=== PATIENT | female | born 1975 | race Caucasian/White ===

== ENCOUNTER → 2021-04-25 | Outpatient (CLI) | payer BC, SELFPAY | END | disposition home or self-care (01) | LOC: LABSPEC 04-26 09:38 | PROVIDERS: PCP Internal Medicine; Visit Provider Physician Assistant | DX: U07.1 COVID-19 (principal) | CPT/HCPCS: 87635; U0005; U0003 ==

== ENCOUNTER 2021-04-30 14:19 | Outpatient (CLI) | payer BC, SELFPAY ==
[2021-04-30] MEDS: 0.9% Saline Lock 10 ML Syringe IV (15:17)
[2021-04-30 15:19] VITALS: BP 109/82; PULSE 95; RESP 16; TEMP 36.9; O2SAT 98; BMI 35.9
[2021-04-30 15:50] VITALS: BP 123/86; PULSE 79; RESP 16; TEMP 36.7; O2SAT 98
[2021-04-30 16:49] VITALS: BP 125/79; PULSE 79; RESP 16; TEMP 36.7; O2SAT 98
== END 2021-04-30 16:50 | disposition home or self-care (01) ==
LOC: MS3OUT 14:20 → MS3 14:20
PROVIDERS: PCP Internal Medicine; Referring Provider Nurse Practitioner Acute Care; Visit Provider Nurse Practitioner Acute Care
DX: Z23 Encounter for immunization (principal); U07.1 COVID-19
CPT/HCPCS: J7050; M0245; Q0245; A4216

== ENCOUNTER 2023-11-29 19:11 | Emergency (ER) | payer BC, SELFPAY ==
[2023-11-29 19:11] VITALS: BP 123/92; PULSE 89; RESP 16; TEMP 36.6; O2SAT 95; BMI 36.4
--- NOTE | 2023-11-29 19:23 | ED.VIS.LOWEX ---
HPI History of Present Illness HPI Narrative: Patient presents with right knee injury that occurred today. Patient states she slipped on a wet floor and twisted her right knee. Patient states she landed on the anterior and lateral aspect of her right knee. Patient describes her pain as dull and aching but sharp at times. Patient states it is worse with full flexion of her knee. Patient states ice has been helping with that. Patient admits to some tingling over the anterior aspect of the knee. Patient denies any weakness. Patient denies any head injury or loss of consciousness. Patient denies any other injuries. Chief Complaint: Lower Extremity Injury Informant: patient Occured/Mechanism Mechanism/Context: Yes fall Onset/Context/Timing Onset: Today Context: Sudden Onset Timing: Continuous Quality of Pain: Sharp (At times), Dull and Aching Location: Right knee Worsened by: Complete flexion Relieved by: Ice Associated Symptoms Associated Symptoms: Positive for Parasthesia; Negative for Weakness or Loss of Funtion [facility] Medical History Encounter for screening for COVID-19 Hypertension Home Medications ibuprofen 600 mg tablet 600 mg PO Q8H PRN PRN Pain #14 TABLETS 12/21/15 [Rx Last Taken Unknown] lisinopril 20 mg tablet 10 mg PO QHS 12/21/15 [History Last Taken 04/30/21] simvastatin 10 mg tablet 10 mg PO QHS 12/21/15 [History Last Taken 04/29/21] buspirone 5 mg tablet 5 mg PO QHS Anxiety 06/15/16 [History Last Taken Unknown] Allergy/AdvReac Type Severity Reaction Status Date / Time No Known Allergies Allergy Verified 11/29/23 19:12 Surgical History History of Social History Smoking Status: Never smoker ROS ROS ED Constitutional Constitutional ED: Denies chills or fever(s) Eyes Eyes: Denies blurry vision or change in vision ENT ENT ED: Denies rhinorrhea or sore throat Cardiovascular Cardiovascular: Denies chest pain or palpitations Respiratory/Chest Respiratory/Chest: Denies cough or dyspnea Gastrointestinal Gastrointestinal: Denies nausea or vomiting Genitourinary Genitourinary ED: Denies dysuria or hematuria Musculoskeletal Musculoskeletal: Denies back pain or neck pain Integumentary Denies abscess or rash Neurologic Neurologic: Denies headache(s) or weakness Allergic/Immunologic Allergic/Immunologic ED: Denies mouth swelling or urticaria EXAM Physical Exam Const Vital Signs: 11/29/23 19:11 Temperature 98 F Temperature Source Temporal Pulse Rate 89 Respiratory Rate 16 Blood Pressure 123/92 H Blood Pressure Mean 102 Pulse Ox 95 Oxygen Delivery Method Room Air Positive well nourished and well developed General Appearance ED: well developed HEENT Reports moist mucous membranes Neck full ROM and supple Extremity Extremity Narrative: There is tenderness over the anterior and lateral aspects of the right knee. There is no effusion noted. There is no deformity noted. Range of motion was slightly limited in flexion of the right knee secondary to pain. Extensor mechanism is intact. Varus and valgus stress test were negative. There is tenderness along the joint line. There is guarding with Jacqueline's testing. There is tenderness with Maged testing. Strength is 5/5 bilaterally in the lower extremities. There are no sensory deficits noted. Neuro oriented x3, CN's II-XII intact bilaterally, moves all extremities and no sensory deficits noted Sensorium / Orientation: alert Motor Exam: strength 5/5 throughout Psych mental status grossly normal MDM MDM MDM Narrative Medical decision making narrative: Differential diagnosis includes sprain, contusion, and occult fracture. X-rays of the right knee will be obtained to assess for fracture. Radiography Diagnostic Testing: Clinical Impression(s) from Imaging Studies Knee X-Ray 11/29/23 19:53 IMPRESSION: Normal x-ray examination of the knee. Electronically Signed: Duong Albarran MD at 20:08 EDT , X-rays of the right knee were obtained. There are 4 views. On my independent interpretation, there is no acute fracture or dislocation noted. There is no effusion noted. Radiologist also interpreted the x-rays and agrees. Treatment and Re-Evaluation Narrative: Patient was advised of her findings. Patient was instructed to ice and elevate the right knee. Patient was given a note for work for tomorrow. Patient was instructed to take Tylenol or ibuprofen as needed for pain. Patient understood and was agreeable with the plan. All questions were answered. Discharge Plan Triage Chief Complaint: Lower Extremity Injury ED Provider: Kwaku Lee Dx/Rx/DC Orders Clinical Impression: Fall, Contusion of right knee, initial encounter Instructions: ED Knee Sprain Prescriptions: No Action lisinopril 20 MG tablet 10 mg PO QHS simvastatin 10 MG tablet 10 mg PO QHS ibuprofen 600 MG tablet 600 mg PO Q8H PRN PRN (Reason: Pain) Qty: 14 0RF buspirone 5 MG tablet 5 mg PO QHS Patient Comments: TAKE 1 TABLET BY MOUTH THREE TIMES DAILY Stand Alone Forms: ED Work / School Excuse Primary Care Provider: Carina Nobles Referrals: Carina Nobles MD [Primary Care Provider] - 5-7 Days Disposition Disposition: Home, Self Care
--- NOTE | 2023-11-29 19:53 | RAD_ITS ---
STUDY: X-RAY - RIGHT KNEE REASON FOR EXAM: Female, 48 years old. Injury/Pain TECHNIQUE: 4 view(s) of the knee. COMPARISON: None. FINDINGS: Normal visualized distal femur. Normal visualized proximal tibia and fibula. Normal proximal tibiofibular articulation. Normal medial femorotibial compartment. Normal lateral femorotibial compartment. Normal patellofemoral articulation. The soft tissue structures are unremarkable. RAD/Knee 4 or More Views IMPRESSION: Normal x-ray examination of the knee. Electronically Signed: Duong Albarran MD at 20:08 EDT ,
[2023-11-29 21:10] VITALS: BP 138/91; PULSE 88; RESP 18; TEMP 36.9; O2SAT 97
== END 2023-11-29 21:15 | disposition home or self-care (01) ==
PROVIDERS: Emergency Provider Emergency Medicine; PCP Internal Medicine; Visit Provider Emergency Medicine
DX: S80.01XA Contusion of right knee, initial encounter (principal); W01.0XXA Fall on same level from slipping, tripping and stumbling without subsequent striking against object, initial encounter; I10 Essential (primary) hypertension; Z79.899 Other long term (current) drug therapy
CPT/HCPCS: 73564; 99282